=== PATIENT | male | born 2000 | race Caucasian/White ===

== ENCOUNTER 2022-04-12 03:10 | Emergency (ER) | payer MEDICAID ==
[~2022-04-12] VITALS: Ht 180.3 cm; Wt 72.6 kg
[2022-04-12 03:10] VITALS: BP 134/85
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
--- NOTE | 2022-04-12 03:26 | NUR ---
Dr. Tran examining patient.
[2022-04-12 03:47] VITALS: BP 133/82
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
== END 2022-04-12 03:48 ==
LOC: MED 03:10
DX: Z02.89 Encounter for other administrative examinations (principal); V89.2XXA Person injured in unspecified motor-vehicle accident, traffic, initial encounter; Y93.89 Activity, other specified; Y92.89 Other specified places as the place of occurrence of the external cause; Y99.8 Other external cause status
CPT/HCPCS: 99283